=== PATIENT | female | born 1990 | race Caucasian/White ===

== ENCOUNTER 2016-12-05 17:43 | Emergency (ER) | payer BC ==
[2016-12-05] MEDS ORDERED: birth controll (17:53)
== END 2016-12-05 20:17 ==
LOC: EDMED 17:43
DX: R10.31 Right lower quadrant pain (principal); R19.7 Diarrhea, unspecified; R11.0 Nausea; Z90.49 Acquired absence of other specified parts of digestive tract
CPT/HCPCS: J2405; Q9967